=== PATIENT | female | born 1945 | race African-American/Black ===

== ENCOUNTER → 2021-11-30 | Emergency (ER) | END | disposition left against medical advice (07) | LOC: ER 15:51 | DX: L08.9 Local infection of the skin and subcutaneous tissue, unspecified (principal); M79.89 Other specified soft tissue disorders ==

== ENCOUNTER 2022-08-23 15:06 | Emergency (ER) | payer OTHER, MEDICARE ==
[~2022-08-23] VITALS: Ht 149.9 cm; Wt 65.3 kg
[2022-08-23] MEDS ORDERED: HYDROCODONE/APAP 5MG-325MG TAB PO ONE (15:30)
[2022-08-23 18:03] VITALS: BP 122/68; PULSE 71; RESP 18; TEMP 98.3; O2SAT 99
== END 2022-08-23 18:08 | disposition home or self-care (01) ==
LOC: ER 15:12
DX: S00.03XA Contusion of scalp, initial encounter (principal); S29.012A Strain of muscle and tendon of back wall of thorax, initial encounter; I10 Essential (primary) hypertension; J44.9 Chronic obstructive pulmonary disease, unspecified; E11.9 Type 2 diabetes mellitus without complications; Z79.82 Long term (current) use of aspirin; W01.198A Fall on same level from slipping, tripping and stumbling with subsequent striking against other object, initial encounter; Y92.000 Kitchen of unspecified non-institutional (private) residence as the place of occurrence of the external cause
CPT/HCPCS: 70450; 72125; 72128; 99284